=== PATIENT | female | born 1975 | race Caucasian/White ===

== ENCOUNTER 2023-08-13 09:32 | Outpatient (CLI) | payer BC, SELFPAY ==
--- NOTE | ~2023-08-13 | MMUS_ITS ---
EXAMINATION: MM diagnostic rashard LT w armando, US breast LT complete HISTORY: Abnormal screening mammogram at outside hospital TECHNIQUE: Additional 3-D tomosynthesis images of the left breast were performed and synthetic 2-D im ages were generated. CAD analysis was submitted and interpreted. High resolution complete left breast ultrasound examination could all 4 quadrants and subareolar area was performed. COMPARISON: 07/30/2023 bilateral screening mammogram occasional low-density circumscribed opacities ar e noted including approximately 4 mm opacity in the anterior outer mid to lower left breast (coned co mpression left CC Tomosynthesis image /) and anterior mid to upper inner left breast 4.5 mm opaci ty. BREAST PARENCHYMAL COMPOSITION: The breasts are almost entirely fatty. FINDINGS: MAMMOGRAPHIC FINDINGS: Occasional low-density circumscribed opacities are noted including approximately 4 mm opacity in the anterior outer mid to lower left breast (coned compression left CC Tomosynthesis image /73), and an terior mid to upper inner left breast 4.5 mm opacity (coned compression craniocaudal Tomosynthesis im age 48/73). These have benign mammographic features. No suspicious mass, architectural distortion, malignant calcification, skin thickening or retraction of the left breast is evident on these supplemental diagnostic views. ULTRASOUND: 10:00 5 cm from nipple: Parallel circumscribed hypoechoic 5.4 x 5.4 x 2.9 mm opacity is noted, withou t internal vascularity or posterior shadowing, probably benign No suspicious mass or shadowing is detected. IMPRESSION: 1. Probably benign finding 2. 6 month diagnostic left mammogram and targeted left breast ultrasound follow-up are recommended BI-RADS category 3, probably benign findings. Reviewed, dictated and finalized at location A. IMPRESSION: 1. Probably benign finding 2. 6 month diagnostic left mammogram and targeted left breast ultrasound follow -up are recommended BI-RADS category 3, probably benign findings.
== END 2023-08-13 09:33 | disposition home or self-care (01) ==
PROVIDERS: PCP Nurse Practitioner; Visit Provider Nurse Practitioner
DX: R92.8 Other abnormal and inconclusive findings on diagnostic imaging of breast (principal)
CPT/HCPCS: 76641; 77061; 77065; G0279

== ENCOUNTER 2024-04-08 09:22 | Outpatient (CLI) | payer BC, SELFPAY ==
--- NOTE | ~2024-04-08 | MMUS_ITS ---
EXAMINATION: MM diagnostic rashard LT w armando, US breast LT complete HISTORY: Follow-up left breast mass TECHNIQUE: Additional 3-D tomosynthesis images of the left breast were performed and synthetic 2-D im ages were generated. CAD analysis was submitted and interpreted. High resolution Limited left breast ultrasound was performed. COMPARISON: Comparison to multiple prior studies sequentially, with oldest reviewed study dated 07/30. BREAST PARENCHYMAL COMPOSITION: Not dense: There are scattered areas of fibroglandular density. FINDINGS: MAMMOGRAPHIC FINDINGS: The left breast is stable. No new masses, calcifications or architectural distortion. Stable nodular asymmetry periareolar location of the left breast. ULTRASOUND: Complete US of all 4 quadrants of the left breast and retroareolar region was reviewed. At 10:00, 5 c m from the nipple there is an oval parallel oriented hypoechoic 4 mm mass without posterior features or internal vascularity, unchanged from prior examination. No other discrete mass. IMPRESSION: 1. Stable benign-appearing left breast mass. No evidence for malignancy in the left breast. 2. Routine yearly screening mammogram and regular clinical breast examination are recommended. BI-RADS Category 2: Benign finding(s). Reviewed, dictated and finalized at location B. IMPRESSION: 1. Stable benign-appearing left breast mass. No evidence for malignancy in the left breast. 2. Routine yearly screening mammogram and regular clinical breast examination a re recommended. BI-RADS Category 2: Benign finding(s).
== END 2024-04-08 09:23 | disposition home or self-care (01) ==
LOC: CHSIMG 09:25
PROVIDERS: PCP Nurse Practitioner; Visit Provider Nurse Practitioner
DX: R92.8 Other abnormal and inconclusive findings on diagnostic imaging of breast (principal)
CPT/HCPCS: 76641; 77061; 77065; G0279